=== PATIENT | female | born 1980 | race Caucasian/White ===

== ENCOUNTER 2024-01-04 09:27 | Emergency (ER) | payer BC, SELFPAY ==
[2024-01-04] MEDS ORDERED: Ketorolac Tromethamine 30 MG (1 mL) VIAL ONE (09:40)
[2024-01-04] MEDS ORDERED: Orphenadrine Citrate 60 MG/2 ML VIAL ONE (09:40)
[2024-01-04] MEDS ORDERED: HYDROcodone/Acetaminophen 5/325 mg Tablet ONE (10:35)
== END 2024-01-04 10:32 | disposition home or self-care (01) ==
LOC: ERS 09:27
DX: M54.41 Lumbago with sciatica, right side (principal); F17.210 Nicotine dependence, cigarettes, uncomplicated; Z55.6 Problems related to health literacy; W19.XXXA Unspecified fall, initial encounter
CPT/HCPCS: 96372; 99283; J1885; J2360